=== PATIENT | female | born 1960 | race Caucasian/White ===

== ENCOUNTER 2016-07-04 14:25 | Inpatient (IN) | payer SELFPAY ==
[~2016-07-04] VITALS: Ht 165.1 cm; Wt 118.6 kg
--- NOTE | ~2016-07-04 | PROC NOTE ---
[place], [place] PROCEDURE NOTE NAME: NOAH PERDUE UNIT #: [id number] ROOM: 406 DOCTOR: CHERI BRANTLEY MD,LEONARD BIRTHDATE: [birth year] DOS: 07/07/2016 PROCEDURE: Bronchoscopy. PREOPERATIVE DIAGNOSES: The patient persistent symptoms of cough and wheezing. POSTOPERATIVE DIAGNOSES: Severe impaction of thick mucus plugs removed from the endobronchial tree bilaterally. PROCEDURE DESCRIPTION: Informed consent obtained from the patient. She was brought to the OR and placed in the supine position. Conscious sedation was administered by the Anesthesia Department after achieving appropriate sedation. Airway introduced into the mouth. Bronchoscope advanced into the airway into laryngeal area. Epiglottis and vocal cords were seen. The vocal cords for the patient were noted yellowish in color, moving symmetrically with movements. Bronchoscope advanced to the vocal cord and tracheal lumen. Tracheal lumen was identified and noted with thick amount of mucus secretion, which was suctioned out to the nydia level. Nydia noted sharp. Right upper, right middle, right lower, left upper, lingular, lower lobe bronchi were all examined individually. Thick plugs of the mucus of the patient was present in the endobronchial tree bilaterally, suctioned out with normal saline wash, sent for culture. Procedure was well tolerated by the patient without any complications. Postoperative findings will be discussed with the patient once the patient recovers the effects of acute sedation. No immediate changes in the treatment at this time will be necessary. LEONARD ALONZO MD CM:PROCNOTE:PROCEDURE NOTE [id number] LEONARD BRANTLEY MD
--- NOTE | ~2016-07-04 | PR ---
[place], [place] PROGRESS NOTE NAME: NOAH PERDUE UNIT #: [id number] ROOM: 406 DOCTOR: CHERI BRANTLEY MD,LEONARD BIRTHDATE: [birth year] DOS: 07/07/2016 SUBJECTIVE: She has been n.p.o. past midnight for bronchoscopy, continued symptoms of coughing, chest congestion, wheezing without any changes from yesterday. OBJECTIVE: VITAL SIGNS: Showed normal temperature, respiratory rate of 20, heart rate of 63, blood pressure 184/99-149/79. HEENT: Examination shows chronic obesity. NECK: Supple. CARDIOVASCULAR: S1, S2 audible. LUNGS: Noted with moderate expiratory wheezing, remains unchanged. ABDOMEN: Soft, nontender. EXTREMITIES: Shows the patient mild edema of the lower extremities. LABORATORY DATA: Cultures of the sputum of the patient normal chau from 07/05/2016 was noted. Blood culture report no bacteria growth from 07/04/2016. IMPRESSION: The patient who has been currently noted with acute persistent exacerbation of chronic obstructive pulmonary disease and possibly bronchial asthma and acute bronchitis, history of past nicotine dependence, prior to the hospitalization. PLAN OF TREATMENT: Proceed with bronchoscopy as planned. Any change in treatment if necessary will be ordered for this patient after bronchoscopy. In the meantime, continue the patient on current therapy, plan of management, other care. Usual care. Supportive therapy, plan of management. LEONARD ALONZO MD CM:PNTRANS [id number] LEONARD BRANTLEY MD 07/08/16 0344 interface
--- NOTE | ~2016-07-04 | CON ---
[place], [place] REPORT OF CONSULTATION [id number] UNIT #: [id number] ROOM: 406 DOCTOR: CHERI BRANTLEY MDLEONARD BIRTHDATE: [birth year] DOS: 07/05/2016 REASON FOR CONSULTATION: Assess the patient for ongoing acute exacerbation of COPD. HISTORY OF PRESENT ILLNESS: This 56-year-old white female with history of chronic nicotine dependence, never have been treated or managed for any pulmonary disease in the past. Recently, moved to [facility]. The patient is reported having symptoms ongoing for past several weeks with increased chest congestion, coughing, shortness of breath. The symptoms have worsened significantly for the past 1 week. Shortness of breath of the patient occurring with mild exertion activity. The coughing I have noted is without any sputum expectoration. Symptoms of chest pain, but tightness in the chest was described. The wheezing has been noted continuous as well. She denies symptoms of hemoptysis or chest trauma. REVIEW OF SYSTEMS: CONSTITUTIONAL SYMPTOMS: She does complain of fatigue and tiredness without any symptoms of fever or chills. EYES: Denies any burning, redness, or tenderness. EARS, NOSE, AND THROAT: Denies sore throat, hoarseness, otalgia, postnasal drainage or epistaxis. CARDIOVASCULAR: Denies angina, pain, edema of the lower extremities or palpitations. GASTROINTESTINAL: Dysphagia, nausea, vomiting, diarrhea, abdominal pain, hematemesis, melena, or hematochezia. SKIN: Denies any lesions or rashes. GENITOURINARY: Denies dysuria, suprapubic pain, or hematuria. MUSCULOSKELETAL: Denies acute joint pain, redness, or tenderness. CENTRAL NERVOUS SYSTEM: Denies dizziness, headache, diplopia or syncopal episodes. Remaining systems were reviewed with the patient, they were noted all negative. PAST MEDICAL HISTORY: 1. The patient was known with history of moderate obesity. 2. Deep venous thrombosis. 3. Nicotine dependence. PAST SURGICAL HISTORY: Reported: 1. Cholecystectomy. 2. Surgery of the right foot. SOCIAL HISTORY: The patient is not , does not have any children. Denies any history of alcohol use or any illicit drug use. Tobacco use noted since teenager, smoking 1.5-2 packs of cigarettes per day actively until the hospitalization. FAMILY HISTORY: The patient reported as mother with complication related to the cancer, unknown origin. History about the dad was unknown. [place], [place] REPORT OF CONSULTATION NAME: NOAH PERDUE #: [id number] UNIT #: [id number] ROOM: [facility] DOCTOR: LEONARD GARCIA MD BIRTHDATE: [birth year] HOME MEDICATIONS: None. DRUG ALLERGIES: Reported allergy to AMOXICILLIN. PHYSICAL EXAMINATION: GENERAL: This is a 56-year-old female, who has been currently noted comfortable. The patient was using Venturi mask of oxygen supplementation at the time of the assessment. Height was noted 5 feet 5 inches, weight 261 pounds, BMI 43.6. VITAL SIGNS: Showed normal temperature, respiratory rate 14-24, heart rate 60-67. The blood pressure noted between 137/68-102/56. Pulse oxygen saturation was noted on 31% Venturi mask 97% saturation. HEENT: Head was atraumatic. Eyes nonicterus. Decreased pharyngeal space secondary to high tongue base. NECK: Supple. CARDIOVASCULAR SYSTEM: S1 and S2 is audible. LUNGS: Noted diffuse expiratory wheezing of the lungs bilaterally without any crackles. ABDOMEN: Soft, nontender, obese. EXTREMITIES: Show no edema, clubbing or cyanosis. LABORATORY DATA: CBC on 07/04/2016 yesterday was noted essentially normal. CMP that was done on 07/04/2016 shows normal BUN and creatinine and other CMP was normal. Arterial blood gas yesterday, pH of 7.41, pCO2 of 44, pO2 60.2 on room air. Troponin for the patient yesterday for 2 sets normal. PT/PTT was normal today. CBC this morning was noted as normal. The BMP this morning noted as glucose 152, BUN and creatinine was normal. TSH was normal. IMPRESSION: 1. The patient who has been currently noted with acute exacerbation of new onset of either chronic obstructive pulmonary disease or bronchial asthma, needs to be further determined with history of chronic nicotine dependence. Heavy tobacco use up to 2 packs of cigarettes per day. 2. History of chronic obesity as well. 3. Acute bacterial bronchitis with strong suspicion of mucus impaction in major airways. PLAN OF TREATMENT: The patient has been currently getting intravenous steroids 60 mg every 8 hours - we will continue DVT prophylaxis. Continue the DuoNeb. The patient was started on Dulera as well for the long-term management of underlying chronic obstructive pulmonary disease or bronchial asthma. Adding the Mucinex, high dose ____. Strong consideration, possible bronchoscopy for the patient could be done in a couple of days if the patient did not start showing improvement in the respiratory status. Use of BiPAP for the patient for any distress has been ordered as well. Thanks for allowing me to participate in the care of this patient. [place], [place] REPORT OF CONSULTATION NAME: NOAH PERDUE UNIT #: [id number] ROOM: [facility] DOCTOR: LEONARD GARCIA MD BIRTHDATE: [birth year] LEONARD ALONZO MD CM:CONSTR:REPORT OF CONSULTATION 1136 07/06/16 0742 interface
--- NOTE | ~2016-07-04 | PR ---
[place], [place] PROGRESS NOTE NAME: NOAH PERDUE UNIT #: [id number] ROOM: 406 DOCTOR: CHERI BRANTLEY MD,LEONARD BIRTHDATE: [birth year] DOS: 07/08/2016 SUBJECTIVE: She has a bronchoscopy done yesterday with significant reduction in the respiratory symptoms of coughing and wheezing was noted. There were no symptoms of chest pain. OBJECTIVE: VITAL SIGNS: Normal temperature, respiratory rate 18, heart rate 75, blood pressure 156/94. Her pulse oxygen saturation on 2 liters nasal cannula 94% saturation recorded. HEENT: Shows no new change. NECK: Supple. CARDIOVASCULAR SYSTEM: S1, S2 audible. LUNGS: Moderate decreased breath sounds were noted with scattered expiratory wheezing much improvement noted from yesterday. ABDOMEN: Soft, nontender. LABORATORY DATA: Culture of the bronchial washing shows normal chau preliminary. The Gram stain showed moderate white blood cells, few epithelial cells, and few gram-positive cocci in clusters with rare gram-negative bacilli. BMP this morning, BUN 26, creatinine was normal. CBC this morning was noted essentially normal. IMPRESSION: The patient with acute severe exacerbation of chronic obstructive pulmonary disease and tracheobronchitis, status post bronchoscopy of removal of the plugs for this patient in the mucus with improvement in the respiratory status was continued. PLAN OF TREATMENT: No changes in the plan of therapy at this time. Continue the current therapy, plan of management as previously without the care. Usual medical management and other therapies. LEONARD ALONZO MD CM:PNTRANS 09 09 LEONARD BRANTLEY MD 07/08/162110 interface
--- NOTE | ~2016-07-04 | PR ---
[place], [place] PROGRESS NOTE NAME: NOAH PERDUE UNIT #: [id number] ROOM: 406 DOCTOR: CHERI BRANTLEY MD,LEONARD BIRTHDATE: [birth year] DOS: 07/09/2016 SUBJECTIVE: The patient has been noted comfortable at this time, sitting on the chair. She had not been noticed symptoms of chest pain. Coughing and wheezing has improved markedly. OBJECTIVE: VITAL SIGNS: Showed normal temperature, respiratory rate 18, heart rate 64, blood pressure 147/81. Pulse oxygen saturation recorded on 2 L nasal cannula 96% saturation. HEENT: Showed no new change. NECK: Supple. CARDIOVASCULAR: S1, S2 audible. LUNGS: The patient noted without any wheezing or crackles. ABDOMEN: Soft, nontender. LABORATORY DATA: Culture of the bronchial washing showed normal chau. IMPRESSION: Progressive resolution of the acute hypoxic respiratory failure, exacerbation of chronic obstructive pulmonary disease, acute tracheobronchitis, ready for home discharge from the Pulmonary standpoint. PLAN OF TREATMENT: Tapering dose of prednisone, oral antibiotics, and outpatient followup recommended. LEONARD ALONZO MD CM:PNTRANS [id number] LEONARD BRANTLEY MD 07/11/16 0032 interface
--- NOTE | ~2016-07-04 | PR ---
[place], [place] PROGRESS NOTE NAME: NOAH PERDUE UNIT #: [id number] ROOM: 406 DOCTOR: CHERI BRANTLEY MD,LEONARD BIRTHDATE: [birth year] DOS: 07/06/2016 PULMONARY PROGRESS NOTE SUBJECTIVE: She has been still noted symptoms of coughing, chest congestion and wheezing, cough remains nonproductive. Symptoms have been noted only partially improved. She was continued getting intravenous steroids, bronchodilators and antibiotics. OBJECTIVE: VITAL SIGNS: Showed normal temperature, respiratory rate 18, heart rate 91, blood pressure 137/77. The pulse oxygen saturation on room air was rather on Venturi mask was 98% saturation. HEENT: Examination shows head was atraumatic. Eyes nonicterus. NECK: Supple. CARDIOVASCULAR SYSTEM: S1, S2 audible. LUNGS: The patient was noted without any wheezing without any rales or crackles. Severe expiratory wheezing of the patient remains persistent with only partial improvement noted since admission. IMPRESSION: The patient with stable respiratory status was noted at the present time with the improvement the patient in the acute respiratory symptom for the patient, but only partial improvement occurred. PLAN OF TREATMENT: The patient was suggested fiberoptic bronchoscopy patient to be done for this patient at this time. Continue the steroids, bronchodilators, oxygen and other treatment plan of management. Usual care. Supportive therapy, other plan of care and treatments. LEONARD ALONZO MD CM:PNTRANS 1300 LEONARD BRANTLEY MD 07/06/16 2319 interface
[2016-07-04 14:40] VITALS: BP 177/93
[2016-07-04 15:40] LABS: BASO % 0.3 % (0.0-1.0); EOS # 0.3 10*3/uL (0.0-0.4); EOS % 3.5 % (1.0-4.0); HEMATOCRIT 44.7 % (37.0-47.0); LYMPH # 2.1 10*3/uL (1.3-4.4); MEAN CELL VOLUME 88.7 fl (81.0-99.0); MEAN CORPUSCULAR HGB 27.8 pg (27.0-31.0); MEAN CORPUSCULAR HGB CONC 31.3 g/dl (33.0-37.0); MEAN PLATELET VOLUME 9.3 fl (9.6-12.3); MONO # 0.5 10*3/uL (0.1-1.0); MONO % 4.9 % (3.0-9.0); NEUT # 6.6 10*3/uL (2.3-7.9); PLATELET COUNT AUTOMATED 283 10*3/uL (130-400); RED BLOOD COUNT 5.04 10*6/uL (4.10-5.10); RED CELL DISTRI WIDTH 14.6 % (0-14.5); WHITE BLOOD COUNT 9.6 10*3/uL (4.8-10.8)
[2016-07-04 15:58] LABS: ALBUMIN 3.2 gm/dl (3.1-4.5); ALKALINE PHOSPHATASE 101 U/L (45-117); BILIRUBIN, TOTAL 0.2 mg/dl (0.2-1.0); BUN 22 mg/dl (7-24); CARBON DIOXIDE 30 mmol/L (21-32); CHLORIDE 105 mmol/L (98-107); CPK 163 U/L (26-192); EST GLOM FILT AFRICAN AMERICAN > 60 ml/min; GLUCOSE 102 mg/dL (65-99); LDH 209 U/L (84-246); POTASSIUM 4.9 mmol/L (3.5-5.1); SGOT/AST 13 IU/L (3-35); SGPT/ALT 19 U/L (12-78); SODIUM 138 mmol/L (136-145); TOTAL PROTEIN 8.2 gm/dL (6.4-8.2)
[2016-07-04 15:59] LABS: CKMB 1.7 ng/ml (0.5-3.6)
[2016-07-04 16:00] VITALS: BP 202/60
[2016-07-04 16:13] LABS: TROPONIN I < 0.015 ng/ml (<0.045)
[2016-07-04 16:38] VITALS: BP 153/94
[2016-07-04 16:47] LABS: ABG BASE EXCESS 2.8 mmol/L (-2.0-2.0); ABG CO2 CONTENT 28.9 mmol/L (23-27); ABG HCO3 27.5 mmol/l (22-26); ABG TEMPERATURE 98.1 F (98.0-99.0); ARTERIAL BLOOD GAS PH 7.411 (7.35-7.45); ARTERIAL BLOOD GAS PO2 60.2 mmHg (80-90)
[2016-07-04 17:27] VITALS: BP 138/67
[2016-07-04 18:15] VITALS: BP 155/70
[2016-07-04 20:00] VITALS: BP 133/50
[2016-07-05] VITALS: BP 137/68
[2016-07-05 07:29] LABS: BASO % 0.1 % (0.0-1.0); HEMATOCRIT 43.3 % (37.0-47.0); HEMOGLOBIN 13.4 g/dl (12.0-16.0); IG # 0.1 10*3/uL (0.0-0.1); LYMPH % 13.1 % (27.0-41.0); MEAN CELL VOLUME 89.5 fl (81.0-99.0); MEAN CORPUSCULAR HGB 27.7 pg (27.0-31.0); MEAN CORPUSCULAR HGB CONC 30.9 g/dl (33.0-37.0); MONO # 0.1 10*3/uL (0.1-1.0); NEUT # 6.1 10*3/uL (2.3-7.9); PLATELET COUNT AUTOMATED 251 10*3/uL (130-400); RED BLOOD COUNT 4.84 10*6/uL (4.10-5.10); RED CELL DISTRI WIDTH 14.4 % (0-14.5); WHITE BLOOD COUNT 7.2 10*3/uL (4.8-10.8)
[2016-07-05 07:57] LABS: PROTHROMBIN TIME 10.5 SECONDS (9.0-12.4)
[2016-07-05 07:59] LABS: BUN 15 mg/dl (7-24); CARBON DIOXIDE 23 mmol/L (21-32); CHLORIDE 107 mmol/L (98-107); CHOLESTEROL 167 mg/dL (<200); EST GLOM FILT AFRICAN AMERICAN > 60 ml/min; FREE T4 0.89 ng/dl (0.76-1.46); GLUCOSE 152 mg/dL (65-99); HDL CHOLESTEROL 68 mg/dl (40-60); LDL CHOLESTEROL 91 mg/dL (9-159); POTASSIUM 4.5 mmol/L (3.5-5.1); SODIUM 141 mmol/L (136-145); TRIGLYCERIDES 41 mg/dl (<150); VLDL CHOLESTEROL 8 mg/dL (6-40)
[2016-07-05 08:00] VITALS: BP 102/56
[2016-07-05 08:05] LABS: THYROID STIM HORMONE (HS) 0.946 uIU/ml (0.358-4.75)
[2016-07-05 09:17] LABS: FOLIC ACID 12.41 ng/mL (>5.38); VITAMIN D, 25-HYDROXY 6.1 ng/mL (30-100)
[2016-07-05 12:00] VITALS: BP 136/87
[2016-07-05 16:00] VITALS: BP 155/63
[2016-07-05 20:00] VITALS: BP 149/62
[2016-07-06] VITALS: BP 130/53
[2016-07-06 08:00] VITALS: BP 142/61
[2016-07-06 12:00] VITALS: BP 137/77
[2016-07-06 16:00] VITALS: BP 129/66
[2016-07-06 20:08] VITALS: BP 160/80
[2016-07-07] VITALS (11 sets, daily range): BP systolic 138–184; BP diastolic 61–112
[2016-07-08] VITALS: BP 156/86
[2016-07-08 06:32] LABS: RED BLOOD COUNT 4.97 10*6/uL (4.10-5.10); WHITE BLOOD COUNT 9.2 10*3/uL (4.8-10.8)
[2016-07-08 06:33] LABS: BASO % 0.1 % (0.0-1.0); HEMATOCRIT 43.6 % (37.0-47.0); HEMOGLOBIN 13.9 g/dl (12.0-16.0); IG # 0.1 10*3/uL (0.0-0.1); LYMPH # 1.8 10*3/uL (1.3-4.4); LYMPH % 19.1 % (27.0-41.0); MEAN CELL VOLUME 87.7 fl (81.0-99.0); MEAN CORPUSCULAR HGB CONC 31.9 g/dl (33.0-37.0); MONO # 0.3 10*3/uL (0.1-1.0); MONO % 3.4 % (3.0-9.0); NEUT % 76.3 % (47.0-73.0); PLATELET COUNT AUTOMATED 310 10*3/uL (130-400); RED CELL DISTRI WIDTH 14.8 % (0-14.5)
[2016-07-08 06:56] LABS: BUN 26 mg/dl (7-24); CARBON DIOXIDE 25 mmol/L (21-32); CHLORIDE 106 mmol/L (98-107); EST GLOM FILT AFRICAN AMERICAN > 60 ml/min; GLUCOSE 120 mg/dL (65-99); POTASSIUM 4.1 mmol/L (3.5-5.1); SODIUM 141 mmol/L (136-145)
[2016-07-08 08:55] VITALS: BP 156/94
[2016-07-08 12:00] VITALS: BP 132/70
[2016-07-08 14:10] LABS: ACID FAST SPEC PROCESSING Concentration (.)
[2016-07-08 16:00] VITALS: BP 143/80
[2016-07-08 20:00] VITALS: BP 117/65
[2016-07-09] VITALS: BP 150/80
[2016-07-09 08:00] VITALS: BP 147/81
[2016-07-09] MEDS ORDERED: LEVOFLOXACIN500 MG PO (11:04)
[2016-07-09] MEDS ORDERED: PREDNISONE10 MG PO (11:04)
[2016-07-09] MEDS ORDERED: VENTOLIN H0.09 MG/AC INH (11:04)
[2016-07-09] MEDS ORDERED: Nicotrol 10MG I1 BOX INH (11:04)
[2016-07-09] MEDS ORDERED: VITAMIN D50000 I3 PO (11:04)
== END 2016-07-09 12:15 | disposition home or self-care (01) | DRG 871 ==
LOC: ED 14:25 → EDHOLD 17:44 → 4E 17:44
PROVIDERS: Family Medicine; Internal Medicine; Internal Medicine Hospice and Palliative Medicine; Physician Assistant
PROC: 0BCB8ZZ Extirpation of Matter from Left Lower Lobe Bronchus, Via Natural or Artificial Opening Endoscopic (ICD-10-PCS; principal; 2016-07-07)
PROC: 0BC58ZZ Extirpation of Matter from Right Middle Lobe Bronchus, Via Natural or Artificial Opening Endoscopic (ICD-10-PCS; principal; 2016-07-07)
PROC: 0BC68ZZ Extirpation of Matter from Right Lower Lobe Bronchus, Via Natural or Artificial Opening Endoscopic (ICD-10-PCS; principal; 2016-07-07)
PROC: 0BC48ZZ Extirpation of Matter from Right Upper Lobe Bronchus, Via Natural or Artificial Opening Endoscopic (ICD-10-PCS; principal; 2016-07-07)
PROC: 0BC28ZZ Extirpation of Matter from Carina, Via Natural or Artificial Opening Endoscopic (ICD-10-PCS; principal; 2016-07-07)
PROC: 0BC88ZZ Extirpation of Matter from Left Upper Lobe Bronchus, Via Natural or Artificial Opening Endoscopic (ICD-10-PCS; principal; 2016-07-07)
PROC: 0BC98ZZ Extirpation of Matter from Lingula Bronchus, Via Natural or Artificial Opening Endoscopic (ICD-10-PCS; principal; 2016-07-07)
DX: A41.9 Sepsis, unspecified organism (principal); J96.01 Acute respiratory failure with hypoxia; J44.0 Chronic obstructive pulmonary disease with (acute) lower respiratory infection; J18.9 Pneumonia, unspecified organism; J45.901 Unspecified asthma with (acute) exacerbation; E44.1 Mild protein-calorie malnutrition; I16.1 Hypertensive emergency; J44.1 Chronic obstructive pulmonary disease with (acute) exacerbation; R65.20 Severe sepsis without septic shock; D72.810 Lymphocytopenia; F17.200 Nicotine dependence, unspecified, uncomplicated; J20.9 Acute bronchitis, unspecified; R73.9 Hyperglycemia, unspecified; E66.01 Morbid (severe) obesity due to excess calories; R73.03 Prediabetes; E55.9 Vitamin D deficiency, unspecified; Z90.49 Acquired absence of other specified parts of digestive tract; Z80.9 Family history of malignant neoplasm, unspecified; Z71.6 Tobacco abuse counseling; Z88.1 Allergy status to other antibiotic agents; Z68.35 Body mass index [BMI] 35.0-35.9, adult

== ENCOUNTER → 2016-12-07 | Outpatient (CLI) | payer OTHER ==
[~2016-12-07] MED LIST: LEVOFLOXACIN500 MG PO; Nicotrol 10MG I1 BOX INH; PREDNISONE10 MG PO; VENTOLIN H0.09 MG/AC INH; VITAMIN D50000 I3 PO
[2016-12-07 10:29] LABS: CHOLESTEROL 179 mg/dL (<200); HDL CHOLESTEROL 54 mg/dl (40-60); LDL CHOLESTEROL 102 mg/dL (9-159); TRIGLYCERIDES 115 mg/dl (<150); VLDL CHOLESTEROL 23 mg/dL (6-40)
== END | disposition home or self-care (01) ==
LOC: LAB 09:25 → MAMMO 14:40
PROVIDERS: Nurse Practitioner Family
DX: Z12.31 Encounter for screening mammogram for malignant neoplasm of breast (principal); R91.8 Other nonspecific abnormal finding of lung field; I10 Essential (primary) hypertension; E66.9 Obesity, unspecified; J43.9 Emphysema, unspecified; F17.200 Nicotine dependence, unspecified, uncomplicated

== ENCOUNTER → 2016-12-19 | Outpatient (CLI) | payer OTHER | END | disposition home or self-care (01) | LOC: CT 12-18 14:00 | DX: R05 Cough (principal); R06.2 Wheezing; R20.8 Other disturbances of skin sensation; F17.200 Nicotine dependence, unspecified, uncomplicated; Z90.49 Acquired absence of other specified parts of digestive tract ==

== ENCOUNTER → 2017-04-18 | Outpatient (CLI) | payer OTHER | END | disposition home or self-care (01) | LOC: D 10:06 | DX: E66.9 Obesity, unspecified (principal) ==

== ENCOUNTER → 2017-06-27 | Outpatient (CLI) | payer OTHER | END | disposition home or self-care (01) | LOC: CARD 11:28 | DX: J44.9 Chronic obstructive pulmonary disease, unspecified (principal); R94.31 Abnormal electrocardiogram [ECG] [EKG] ==

== ENCOUNTER 2017-07-16 09:39 | Inpatient (IN) | payer OTHER ==
[~2017-07-16] VITALS: Ht 157.4 cm; Wt 123.9 kg
[2017-07-16] VITALS (7 sets, daily range): BP systolic 108–170; BP diastolic 50–78
--- NOTE | ~2017-07-16 | ST ---
[place], [place] EXERCISE STRESS TEST REPORT NAME: [facility]AH [facility]DUE [id number] UNIT #: [id number] ROOM: 421 DOCTOR: AISHA RODRIGUEZ MD BIRTHDATE: [birth year] DOS: 07/17/2017 LEXISCAN STRESS EKG REFERRING PHYSICIAN: Dr. Yee. INDICATION: Central chest pain. The patient underwent standard protocol Lexiscan stress EKG. Baseline EKG shows sinus bradycardia with a resting heart rate of 56 beats per minute with a blood pressure of 104/78. Peak heart rate was 88 with a blood pressure of 90s/60. The patient had no EKG changes, no arrhythmias, no chest pain symptoms. SUMMARY OF FINDINGS: Unremarkable Lexiscan stress EKG. Please see separate report for perfusion scan results. AISHA RODRIGUEZ MD CM:STRESS:EXERCISE STRESS TEST REPORT [id number] AISHA RODRIGUEZ MD
[2017-07-16 10:05] LABS: BASO % 0.6 % (0.0-1.0); EOS # 0.2 10*3/uL (0.0-0.4); EOS % 2.3 % (1.0-4.0); HEMATOCRIT 41.5 % (37.0-47.0); HEMOGLOBIN 13.3 g/dl (12.0-16.0); LYMPH # 2.4 10*3/uL (1.3-4.4); LYMPH % 33.2 % (27.0-41.0); MEAN CELL VOLUME 85.2 fl (81.0-99.0); MEAN CORPUSCULAR HGB 27.3 pg (27.0-31.0); MEAN PLATELET VOLUME 9.3 fl (9.6-12.3); MONO # 0.4 10*3/uL (0.1-1.0); MONO % 5.2 % (3.0-9.0); NEUT # 4.1 10*3/uL (2.3-7.9); NEUT % 58.4 % (47.0-73.0); PLATELET COUNT AUTOMATED 264 10*3/uL (130-400); RED BLOOD COUNT 4.87 10*6/uL (4.10-5.10); WHITE BLOOD COUNT 7.1 10*3/uL (4.8-10.8)
[2017-07-16 10:13] LABS: ACT PARTIAL THROMBO TIME 19.8 SECONDS (20.8-31.5)
[2017-07-16 10:20] LABS: ALBUMIN 3.2 gm/dl (3.1-4.5); ALKALINE PHOSPHATASE 104 U/L (45-117); BUN 13 mg/dl (7-24); CHLORIDE 110 mmol/L (98-107); CREATININE 0.96 mg/dL (0.55-1.02); LIPASE 116 U/L (73-393); POTASSIUM 3.7 mmol/L (3.5-5.1); SGOT/AST 12 IU/L (3-35); SGPT/ALT 23 U/L (12-78); SODIUM 142 mmol/L (136-145); TOTAL PROTEIN 7.6 gm/dL (6.4-8.2)
[2017-07-16 10:24] LABS: TROPONIN I < 0.015 ng/ml (<0.045)
[2017-07-16] MEDS ORDERED: VITAMIN D50000 UNIT PO (11:08)
[2017-07-16] MEDS ORDERED: ARNUITY ELLIP100 MCG INH (11:09)
[2017-07-17] VITALS: BP 104/63
[2017-07-17 07:05] LABS: BASO % 0.7 % (0.0-1.0); EOS # 0.2 10*3/uL (0.0-0.4); EOS % 3.4 % (1.0-4.0); HEMATOCRIT 40.7 % (37.0-47.0); HEMOGLOBIN 12.9 g/dl (12.0-16.0); LYMPH # 1.9 10*3/uL (1.3-4.4); LYMPH % 34.5 % (27.0-41.0); MEAN CORPUSCULAR HGB 27.3 pg (27.0-31.0); MEAN CORPUSCULAR HGB CONC 31.7 g/dl (33.0-37.0); MEAN PLATELET VOLUME 9.1 fl (9.6-12.3); MONO # 0.3 10*3/uL (0.1-1.0); NEUT # 3.2 10*3/uL (2.3-7.9); NEUT % 56.2 % (47.0-73.0); PLATELET COUNT AUTOMATED 260 10*3/uL (130-400); RED BLOOD COUNT 4.73 10*6/uL (4.10-5.10); RED CELL DISTRI WIDTH 14.1 % (0-14.5); WHITE BLOOD COUNT 5.6 10*3/uL (4.8-10.8)
[2017-07-17 07:26] LABS: BUN 17 mg/dl (7-24); CHLORIDE 108 mmol/L (98-107); CREATININE 0.93 mg/dL (0.55-1.02); POTASSIUM 4.3 mmol/L (3.5-5.1); SODIUM 141 mmol/L (136-145)
[2017-07-17 07:29] LABS: CHOLESTEROL 154 mg/dL (<200); HDL CHOLESTEROL 48 mg/dl (40-60); LDL CHOLESTEROL 85 mg/dL (9-159); PHOSPHOROUS 3.8 mg/dL (2.5-4.9); TRIGLYCERIDES 104 mg/dl (<150); VLDL CHOLESTEROL 21 mg/dL (6-40)
[2017-07-17 08:00] VITALS: BP 97/53
[2017-07-17 09:35] LABS: VITAMIN D, 25-HYDROXY 18.7 ng/mL (30-100)
== END 2017-07-17 16:35 | disposition home or self-care (01) | DRG 206 ==
LOC: ED 09:39 → 4E 10:40 → EDHOLD 10:40 → 4E 10:44
PROVIDERS: Emergency Medicine; Student in an Organized Health Care Education/Training Program
PROC: 4A02XM4 Measurement of Cardiac Total Activity, External Approach (ICD-10-PCS; principal; 2017-07-17)
PROC: 3E073KZ Introduction of Other Diagnostic Substance into Coronary Artery, Percutaneous Approach (ICD-10-PCS; 2017-07-17)
DX: M94.0 Chondrocostal junction syndrome [Tietze] (principal); E87.8 Other disorders of electrolyte and fluid balance, not elsewhere classified; E44.0 Moderate protein-calorie malnutrition; E66.01 Morbid (severe) obesity due to excess calories; Z68.43 Body mass index [BMI] 50.0-59.9, adult; J44.9 Chronic obstructive pulmonary disease, unspecified; Z88.1 Allergy status to other antibiotic agents; Z79.899 Other long term (current) drug therapy; Z86.718 Personal history of other venous thrombosis and embolism; Z90.49 Acquired absence of other specified parts of digestive tract